=== PATIENT | male | born 1955 | race Two or more races ===

== ENCOUNTER 2019-10-06 10:52 | Emergency (ER) | payer SELFPAY ==
[~2019-10-06] VITALS: Ht 172.7 cm; Wt 75.0 kg
[2019-10-06] MEDS ORDERED: SODIUM CHLORIDE 0.9% 1,000 ML IV ONE (11:31)
[2019-10-06 12:21] LABS: EOSINOPHILS % 4.6 % (0.0-5.0); HEMOGLOBIN. 12.9 g/dL (14.0-18.0); MEAN CORPUSCULAR HEMOGLOBIN 32.3 pg (28.0-32.0); MEAN CORPUSCULAR VOLUME 95.1 fL (80.0-94.0); MEAN PLATELET VOLUME 6.8 fl (7.4-10.4); MONOCYTES % 6.7 % (2.0-8.0); NEUTROPHILS % 54.7 % (40.0-76.0); PLATELET 346 x1000/uL (130-400); RED BLOOD CELL COUNT 3.99 mill/uL (4.7-6.1); RED CELL DISTRIBUTION WIDTH 15.5 % (11.6-14.6)
[2019-10-06 12:22] LABS: CHLORIDE 109 mEq/L (98-107)
[2019-10-06 12:48] LABS: ETHANOL BLOOD 319 mg/dL
[2019-10-06 14:00] VITALS: BP 115/82
== END 2019-10-06 14:30 | disposition home or self-care (01) ==
LOC: ER 10:52
DX: I83.892 Varicose veins of left lower extremity with other complications (principal); E86.0 Dehydration; F10.129 Alcohol abuse with intoxication, unspecified; Y90.8 Blood alcohol level of 240 mg/100 ml or more
CPT/HCPCS: 36415; 80053; 80320; 85025; 99283; J7030; G0480

== ENCOUNTER 2020-12-22 16:20 | Inpatient (IN) | payer MEDICAID ==
[~2020-12-22] VITALS: Ht 172.7 cm; Wt 63.5 kg
[2020-12-22] MEDS ORDERED: FOLIC ACID 1 MG, THIAMINE HCL 100 MG, MVI, ADULT NO.1 10 ML in DEXTROSE 5% WATER 1,000 ML IV ONE (16:45)
[2020-12-22] MEDS ORDERED: SODIUM CHLORIDE 0.9% 1,000 ML IV ONE (16:45)
[2020-12-22] MEDS ORDERED: MULTIVITAMINS,THER W-MINERALS TABLET PO NR (17:15)
[2020-12-22] MEDS ORDERED: FOLIC ACID 1 MG, THIAMINE HCL 100 MG in DEXTROSE 5% WATER 1,000 ML IV ONE (17:15)
[2020-12-22 17:35] LABS: HEMATOCRIT. 22.5 % (42.0-52.0); HEMOGLOBIN. 7.7 g/dL (14.0-18.0); MEAN CORPUSCULAR HEMOGLOBIN 34.2 pg (28.0-32.0); MEAN CORPUSCULAR VOLUME 100.7 fL (80.0-94.0); MEAN PLATELET VOLUME 7.9 fl (7.4-10.4); PLATELET 234 x1000/uL (130-400); RED BLOOD CELL COUNT 2.24 mill/uL (4.7-6.1); RED CELL DISTRIBUTION WIDTH 14.8 % (11.6-14.6)
[2020-12-22 17:41] LABS: INR 1.5; PROTHROMBIN TIME 15.6 sec (9.6-11.0)
[2020-12-22 17:44] LABS: CHLORIDE 99 mEq/L (98-107)
[2020-12-22 17:48] LABS: ETHANOL BLOOD < 10 mg/dL
[2020-12-22 18:06] LABS: PLATELET ESTIMATE NORMAL
[2020-12-22] MEDS ORDERED: KCL 20MEQ/100ML PREMIX 100 ML IV NR (19:00)
[2020-12-22] MEDS ORDERED: ACETAMINOPHEN 650MG/20.3ML UDC GT PRN (21:15)
[2020-12-22] MEDS ORDERED: ONDANSETRON HCL 4MG/2ML INJ IV PRN (21:15)
[2020-12-22] MEDS ORDERED: DIPHENHYDRAMINE 50MG/ML VIAL IV PRN (21:15)
[2020-12-22] MEDS ORDERED: ACETAMINOPHEN 325MG TABLET PO PRN ×2 (21:15)
[2020-12-22] MEDS ORDERED: GUAIFENESIN 200MG/10ML SUGAR FREE UDC PO PRN (21:15)
[2020-12-22] MEDS ORDERED: DOCUSATE SODIUM 100MG CAPSULE PO PRN (21:15)
[2020-12-22] MEDS ORDERED: DEXT 5%/0.45% NACL 1000ML 1,000 ML IV SCH (21:30)
[2020-12-23] VITALS (7 sets, daily range): BP systolic 86–108; BP diastolic 49–78
[2020-12-23] MEDS: ENOXAPARIN 40MG/0.4ML SYR SUBCUT SCH ×2 (02:18→21:29)
[2020-12-23 04:30] LABS: BASOPHILS % 0.6 % (0.0-2.0); EOSINOPHILS % 3.1 % (0.0-5.0); HEMATOCRIT. 22.4 % (42.0-52.0); HEMOGLOBIN. 7.1 g/dL (14.0-18.0); LYMPHOCYTES % 12.8 % (20.0-50.0); MEAN CORPUSCULAR VOLUME 103.3 fL (80.0-94.0); MEAN PLATELET VOLUME 7.2 fl (7.4-10.4); MONOCYTES % 10.2 % (2.0-8.0); NEUTROPHILS % 73.3 % (40.0-76.0); PLATELET 208 x1000/uL (130-400); RED BLOOD CELL COUNT 2.17 mill/uL (4.7-6.1); RED CELL DISTRIBUTION WIDTH 14.8 % (11.6-14.6)
[2020-12-23 04:35] LABS: CHLORIDE 98 mEq/L (98-107)
[2020-12-23 04:42] LABS: LDL CHOLESTEROL 26 mg/dL (5-100)
[2020-12-23 04:43] LABS: HDL CHOLESTEROL 9 mg/dL (40-59)
[2020-12-23] MEDS: FOLIC ACID 1MG TABLET PO SCH (09:19)
[2020-12-23] MEDS: THIAMINE HCL 100MG TABLET PO SCH (09:19)
[2020-12-23] MEDS ORDERED: POTASSIUM CHLORIDE 20MEQ TABLET SR PO NR (10:30)
[2020-12-23] MEDS: CHLORDIAZEPOXIDE 25MG CAPSULE PO SCH ×2 (13:39→21:28)
[2020-12-24 04:00] VITALS: BP 126/78
[2020-12-24] MEDS: CHLORDIAZEPOXIDE 25MG CAPSULE PO SCH ×3 (06:57→22:01)
[2020-12-24 08:00] VITALS: BP 90/55
[2020-12-24] MEDS: FOLIC ACID 1MG TABLET PO SCH (08:29)
[2020-12-24] MEDS: THIAMINE HCL 100MG TABLET PO SCH (08:33)
[2020-12-24 08:50] LABS: BASOPHILS % 0.1 % (0.0-2.0); EOSINOPHILS % 3.4 % (0.0-5.0); HEMATOCRIT. 21.7 % (42.0-52.0); HEMOGLOBIN. 7.4 g/dL (14.0-18.0); LYMPHOCYTES % 10.3 % (20.0-50.0); MEAN CORPUSCULAR HEMOGLOBIN 34.4 pg (28.0-32.0); MEAN CORPUSCULAR VOLUME 101.2 fL (80.0-94.0); MEAN PLATELET VOLUME 7.6 fl (7.4-10.4); MONOCYTES % 10.2 % (2.0-8.0); PLATELET 213 x1000/uL (130-400); RED BLOOD CELL COUNT 2.15 mill/uL (4.7-6.1); RED CELL DISTRIBUTION WIDTH 14.5 % (11.6-14.6)
[2020-12-24 08:59] LABS: CHLORIDE 94 mEq/L (98-107)
[2020-12-24 09:06] LABS: TOTAL IRON BINDING CAPACITY 63 ug/dL (250-450)
[2020-12-24 09:20] LABS: FOLIC ACID (FOLATE) SERUM 10.8 ng/mL (>5.38)
[2020-12-24 12:00] VITALS: BP 90/55
[2020-12-24] MEDS: SODIUM CHLORIDE 1000MG TABLET PO SCH ×2 (12:33→16:18)
[2020-12-24 16:00] VITALS: BP 100/61
[2020-12-24 20:00] VITALS: BP 98/65
[2020-12-24] MEDS: FAMOTIDINE 20MG TABLET PO SCH (22:01)
[2020-12-25] VITALS: BP 90/62
[2020-12-25 04:00] VITALS: BP 94/58
[2020-12-25] MEDS: CHLORDIAZEPOXIDE 25MG CAPSULE PO SCH ×3 (05:34→21:03)
[2020-12-25 08:00] VITALS: BP 90/55
[2020-12-25] MEDS: FOLIC ACID 1MG TABLET PO SCH (08:56)
[2020-12-25] MEDS: THIAMINE HCL 100MG TABLET PO SCH (09:01)
[2020-12-25 12:00] VITALS: BP 90/55
[2020-12-25] MEDS ORDERED: DIATR MEGLU/DIATRIZOATE SOLN 30ML PO SCH (12:45)
[2020-12-25] MEDS: NICOTINE 7MG PATCH TD SCH (14:50)
[2020-12-25 16:00] VITALS: BP 90/51
[2020-12-25 16:07] LABS: BASOPHILS % 0.5 % (0.0-2.0); EOSINOPHILS % 2.4 % (0.0-5.0); HEMATOCRIT. 24.6 % (42.0-52.0); HEMOGLOBIN. 8.2 g/dL (14.0-18.0); LYMPHOCYTES % 8.6 % (20.0-50.0); MEAN CORPUSCULAR HEMOGLOBIN 34.6 pg (28.0-32.0); MEAN CORPUSCULAR VOLUME 103.6 fL (80.0-94.0); MEAN PLATELET VOLUME 8.4 fl (7.4-10.4); MONOCYTES % 8.4 % (2.0-8.0); NEUTROPHILS % 80.1 % (40.0-76.0); PLATELET 248 x1000/uL (130-400); RED BLOOD CELL COUNT 2.37 mill/uL (4.7-6.1)
[2020-12-25 16:26] LABS: CHLORIDE 97 mEq/L (98-107)
[2020-12-25 20:00] VITALS: BP 93/59
[2020-12-25] MEDS: FAMOTIDINE 20MG TABLET PO SCH (20:41)
[2020-12-25] MEDS: MIRTAZAPINE 15MG TABLET PO SCH (20:41)
[2020-12-25] MEDS ORDERED: IOHEXOL-300 100 ML BOTTLE ONE (23:18)
[2020-12-26] VITALS: BP 95/63
[2020-12-26] MEDS: CEFTRIAXONE 1,000 MG in DEXTROSE 5% WATER 50 ML IV SCH ×2 (00:50→19:43)
[2020-12-26 04:00] VITALS: BP 95/64
[2020-12-26 07:08] LABS: BASOPHILS % 0.5 % (0.0-2.0); EOSINOPHILS % 2.3 % (0.0-5.0); HEMATOCRIT. 23.9 % (42.0-52.0); HEMOGLOBIN. 7.8 g/dL (14.0-18.0); LYMPHOCYTES % 12.3 % (20.0-50.0); MEAN CORPUSCULAR HEMOGLOBIN 33.9 pg (28.0-32.0); MEAN CORPUSCULAR VOLUME 103.5 fL (80.0-94.0); MEAN PLATELET VOLUME 8.8 fl (7.4-10.4); MONOCYTES % 6.9 % (2.0-8.0); PLATELET 221 x1000/uL (130-400); RED BLOOD CELL COUNT 2.31 mill/uL (4.7-6.1)
[2020-12-26 07:27] LABS: CHLORIDE 97 mEq/L (98-107)
[2020-12-26 08:00] VITALS: BP 90/61
[2020-12-26] MEDS: NICOTINE 7MG PATCH TD SCH (08:58)
[2020-12-26] MEDS: THIAMINE HCL 100MG TABLET PO SCH (08:58)
[2020-12-26] MEDS: FOLIC ACID 1MG TABLET PO SCH (08:58)
[2020-12-26] MEDS ORDERED: FAMO20TA8 PO (09:27)
[2020-12-26] MEDS ORDERED: THIA100T72 PO (09:27)
[2020-12-26] MEDS ORDERED: NICO-786 TD (09:27)
[2020-12-26] MEDS ORDERED: FOLI-43 PO (09:27)
[2020-12-26] MEDS ORDERED: MIRT15TA6 PO (09:27)
[2020-12-26] MEDS ORDERED: [UNRECOGNIZED DRUG - CODE] MC (09:28)
[2020-12-26 12:00] VITALS: BP 93/58
[2020-12-26] MEDS ORDERED: MAGNESIUM 2 G PREMIX 50 ML IV SCH (12:00)
[2020-12-26 16:00] VITALS: BP 90/56
[2020-12-26] MEDS: FAMOTIDINE 20MG TABLET PO SCH (19:43)
[2020-12-26] MEDS: MIRTAZAPINE 15MG TABLET PO SCH (19:44)
[2020-12-26 20:00] VITALS: BP 103/70
[2020-12-27] VITALS: BP 91/58
[2020-12-27 04:00] VITALS: BP 90/56
[2020-12-27 06:34] LABS: BASOPHILS % 0.7 % (0.0-2.0); EOSINOPHILS % 2.4 % (0.0-5.0); HEMATOCRIT. 21.2 % (42.0-52.0); HEMOGLOBIN. 7.2 g/dL (14.0-18.0); LYMPHOCYTES % 9.8 % (20.0-50.0); MEAN CORPUSCULAR HEMOGLOBIN 34.3 pg (28.0-32.0); MEAN CORPUSCULAR VOLUME 101.6 fL (80.0-94.0); MEAN PLATELET VOLUME 7.9 fl (7.4-10.4); MONOCYTES % 9.1 % (2.0-8.0); PLATELET 249 x1000/uL (130-400); RED BLOOD CELL COUNT 2.09 mill/uL (4.7-6.1); RED CELL DISTRIBUTION WIDTH 15.6 % (11.6-14.6)
[2020-12-27 08:00] VITALS: BP 91/56
[2020-12-27 08:07] LABS: CHLORIDE 100 mEq/L (98-107)
[2020-12-27] MEDS ORDERED: POTASSIUM CHLORIDE 20MEQ TABLET SR PO NR (09:15)
[2020-12-27] MEDS: NICOTINE 7MG PATCH TD SCH (09:52)
[2020-12-27] MEDS: FOLIC ACID 1MG TABLET PO SCH (09:53)
[2020-12-27] MEDS: THIAMINE HCL 100MG TABLET PO SCH (09:53)
[2020-12-27 12:00] VITALS: BP 77/49
[2020-12-27 16:00] VITALS: BP 80/49
[2020-12-27 20:00] VITALS: BP 99/56
[2020-12-27] MEDS: CEFTRIAXONE 1,000 MG in DEXTROSE 5% WATER 50 ML IV SCH (20:40)
[2020-12-27] MEDS: FAMOTIDINE 20MG TABLET PO SCH (20:40)
[2020-12-27] MEDS: MIRTAZAPINE 15MG TABLET PO SCH (20:40)
[2020-12-27 21:07] LABS: CLARITY URINE CLEAR (CLEAR); COLOR URINE DARK YELLOW (YELLOW); KETONES URINE TRACE (NEGATIVE); LEUKOCYTE ESTERASE URINE 1+ (NEGATIVE); NITRITE URINE POSITIVE (NEGATIVE); OCCULT BLOOD URINE NEGATIVE (NEGATIVE); PH URINE 6.5 (4.5-8.0); PROTEIN URINE TRACE (NEGATIVE); SPECIFIC GRAVITY URINE 1.024 (1.005-1.030)
[2020-12-27 21:20] LABS: *AMPHETAMINES SCREEN URINE NEGATIVE (NEGATIVE); *BARBITURATES SCREEN URINE NEGATIVE (NEGATIVE)
[2020-12-27 21:22] LABS: *BENZODIAZEPINES SCREEN URINE PRESUMTIVE POSITIVE (NEGATIVE); *COCAINE SCREEN URINE NEGATIVE (NEGATIVE)
[2020-12-27 21:28] LABS: CANNABINOID URINE SCREEN NEGATIVE (NEGATIVE)
[2020-12-27 21:35] LABS: METHADONE URINE SCREEN NEGATIVE (NEGATIVE)
[2020-12-27 21:38] LABS: OPIATES URINE SCREEN NEGATIVE (NEGATIVE); PHENCYCLIDINE URINE SCREEN NEGATIVE (NEGATIVE)
[2020-12-28] VITALS: BP 100/59
[2020-12-28 04:00] VITALS: BP 118/66
[2020-12-28 08:00] VITALS: BP_SYST 115; BP_SYST 128; BP_DIAS 68; BP_DIAS 86
[2020-12-28 12:00] VITALS: BP 124/67
[2020-12-28 16:00] VITALS: BP 119/72
[2020-12-28] MEDS: THIAMINE HCL 100MG TABLET PO SCH (17:38)
[2020-12-28] MEDS: NICOTINE 7MG PATCH TD SCH (17:38)
[2020-12-28] MEDS: FOLIC ACID 1MG TABLET PO SCH (17:39)
[2020-12-28 20:00] VITALS: BP 99/51
[2020-12-28] MEDS: MIRTAZAPINE 15MG TABLET PO SCH (20:26)
[2020-12-28] MEDS: FAMOTIDINE 20MG TABLET PO SCH (20:26)
[2020-12-28] MEDS: CEFTRIAXONE 1,000 MG in DEXTROSE 5% WATER 50 ML IV SCH (21:00)
[2020-12-29] VITALS (7 sets, daily range): BP systolic 96–115; BP diastolic 58–70
[2020-12-29] MEDS: NICOTINE 7MG PATCH TD SCH (09:00)
[2020-12-29] MEDS: FOLIC ACID 1MG TABLET PO SCH (09:00)
[2020-12-29] MEDS: THIAMINE HCL 100MG TABLET PO SCH (09:01)
[2020-12-29] MEDS: FAMOTIDINE 20MG TABLET PO SCH (20:16)
[2020-12-29] MEDS: MIRTAZAPINE 15MG TABLET PO SCH (20:16)
[2020-12-29] MEDS: CEFTRIAXONE 1,000 MG in DEXTROSE 5% WATER 50 ML IV SCH (21:25)
[2020-12-30] VITALS: BP 108/66
[2020-12-30 04:00] VITALS: BP 115/66
[2020-12-30] MEDS: NICOTINE 7MG PATCH TD SCH (08:45)
[2020-12-30] MEDS: THIAMINE HCL 100MG TABLET PO SCH (08:46)
[2020-12-30] MEDS: FOLIC ACID 1MG TABLET PO SCH (08:46)
[2020-12-30 12:00] VITALS: BP 136/116
[2020-12-30 12:01] LABS: BASOPHILS % 0.6 % (0.0-2.0); EOSINOPHILS % 3.5 % (0.0-5.0); HEMATOCRIT. 24.4 % (42.0-52.0); HEMOGLOBIN. 8.1 g/dL (14.0-18.0); LYMPHOCYTES % 12.2 % (20.0-50.0); MEAN CORPUSCULAR HEMOGLOBIN 33.8 pg (28.0-32.0); MEAN CORPUSCULAR VOLUME 101.7 fL (80.0-94.0); MEAN PLATELET VOLUME 7.9 fl (7.4-10.4); MONOCYTES % 8.8 % (2.0-8.0); NEUTROPHILS % 74.9 % (40.0-76.0); PLATELET 283 x1000/uL (130-400); RED CELL DISTRIBUTION WIDTH 15.6 % (11.6-14.6)
[2020-12-30 12:05] LABS: CHLORIDE 105 mEq/L (98-107)
[2020-12-30 16:00] VITALS: BP 91/65
[2020-12-30] MEDS ORDERED: LACTULOSE 20G/30ML UDC PO PRN (17:45)
[2020-12-30 20:00] VITALS: BP 98/69
[2020-12-30] MEDS: FAMOTIDINE 20MG TABLET PO SCH (20:30)
[2020-12-30] MEDS: CEFTRIAXONE 1,000 MG in DEXTROSE 5% WATER 50 ML IV SCH (21:19)
[2020-12-31] VITALS: BP 95/64
[2020-12-31 04:00] VITALS: BP 92/60
[2020-12-31 08:00] VITALS: BP 94/57
[2020-12-31] MEDS: NICOTINE 7MG PATCH TD SCH (08:22)
[2020-12-31] MEDS: FOLIC ACID 1MG TABLET PO SCH (08:22)
[2020-12-31] MEDS: THIAMINE HCL 100MG TABLET PO SCH (08:23)
[2020-12-31 12:00] VITALS: BP 91/61
[2020-12-31 16:00] VITALS: BP 92/59
[2020-12-31 20:00] VITALS: BP 110/75
[2020-12-31] MEDS: FAMOTIDINE 20MG TABLET PO SCH (21:32)
[2021-01-01] VITALS: BP 88/60
[2021-01-01] MEDS ORDERED: SODIUM CHLORIDE 0.9% 500 ML IV ONE ×2 (03:30→09:30)
[2021-01-01 04:00] VITALS: BP 95/59
[2021-01-01 05:07] LABS: CLARITY URINE CLEAR (CLEAR); COLOR URINE YELLOW (YELLOW); KETONES URINE NEGATIVE (NEGATIVE); LEUKOCYTE ESTERASE URINE TRACE (NEGATIVE); NITRITE URINE NEGATIVE (NEGATIVE); OCCULT BLOOD URINE NEGATIVE (NEGATIVE); PROTEIN URINE NEGATIVE (NEGATIVE); SPECIFIC GRAVITY URINE 1.009 (1.005-1.030); UROBILINOGEN URINE 0.2 E.U./dL (0.2-1.0)
[2021-01-01 08:00] VITALS: BP 99/51
[2021-01-01] MEDS ORDERED: SODIUM CHLORIDE 0.9% 1000ML BAG (SEPSIS BOLUS) IV ONE (09:30)
[2021-01-01] MEDS: FOLIC ACID 1MG TABLET PO SCH (09:35)
[2021-01-01] MEDS: THIAMINE HCL 100MG TABLET PO SCH (09:36)
[2021-01-01] MEDS: NICOTINE 7MG PATCH TD SCH (09:36)
[2021-01-01 12:00] VITALS: BP 98/55
[2021-01-01 13:04] LABS: BASOPHILS % 0.6 % (0.0-2.0); EOSINOPHILS % 3.4 % (0.0-5.0); HEMATOCRIT. 25.2 % (42.0-52.0); LYMPHOCYTES % 16.2 % (20.0-50.0); MEAN CORPUSCULAR HEMOGLOBIN 33.1 pg (28.0-32.0); MEAN CORPUSCULAR VOLUME 103.9 fL (80.0-94.0); MEAN PLATELET VOLUME 7.9 fl (7.4-10.4); MONOCYTES % 8.1 % (2.0-8.0); NEUTROPHILS % 71.7 % (40.0-76.0); PLATELET 234 x1000/uL (130-400); RED BLOOD CELL COUNT 2.42 mill/uL (4.7-6.1); RED CELL DISTRIBUTION WIDTH 16.3 % (11.6-14.6)
[2021-01-01 13:58] LABS: CHLORIDE 112 mEq/L (98-107)
[2021-01-01 16:00] VITALS: BP 99/64
[2021-01-01] MEDS ORDERED: LACTULOSE 20G/30ML UDC PO SCH (21:00)
[2021-01-01 21:37] VITALS: BP 95/65
[2021-01-01] MEDS: FAMOTIDINE 20MG TABLET PO SCH (21:43)
[2021-01-02 01:16] VITALS: BP 104/68
[2021-01-02 04:42] VITALS: BP 99/66
[2021-01-02 08:00] VITALS: BP 103/68
[2021-01-02] MEDS: NICOTINE 7MG PATCH TD SCH (09:36)
[2021-01-02] MEDS: FOLIC ACID 1MG TABLET PO SCH (09:37)
[2021-01-02] MEDS: THIAMINE HCL 100MG TABLET PO SCH (09:37)
[2021-01-02 12:00] VITALS: BP 113/79
[2021-01-02 16:00] VITALS: BP 99/66
[2021-01-02 17:03] VITALS: BP 99/66
== END 2021-01-02 21:02 | DRG 52 ==
LOC: ER 16:20 → 8WST 19:16 → ENRESERV 12-23 03:09 → 8WST 12-23 04:24
PROVIDERS: ADMIT Family Medicine; ATTEND Family Medicine
DX: G93.41 Metabolic encephalopathy (principal); D68.9 Coagulation defect, unspecified; E44.0 Moderate protein-calorie malnutrition; R65.10 Systemic inflammatory response syndrome (SIRS) of non-infectious origin without acute organ dysfunction; E87.1 Hypo-osmolality and hyponatremia; K76.0 Fatty (change of) liver, not elsewhere classified; E87.6 Hypokalemia; D72.825 Bandemia; K52.9 Noninfective gastroenteritis and colitis, unspecified; K80.20 Calculus of gallbladder without cholecystitis without obstruction; Y90.9 Presence of alcohol in blood, level not specified; R26.89 Other abnormalities of gait and mobility; Z59.0 Homelessness; Z68.21 Body mass index [BMI] 21.0-21.9, adult; F10.20 Alcohol dependence, uncomplicated; Z74.01 Bed confinement status; R62.7 Adult failure to thrive
CPT/HCPCS: 36415; 70551; 71045; 74177; 76705; 80048; 80053; 80061; 80305; 80320; 81003; 82140; 82607; 82746; 83540; 83550; 83735; 83930; 84443; 84484; 85025; 93005; 97110; 97162; 97166; 97530; 99285; C1893; J0696; J1650; J3411; J3475; J3480; J3490; J7030; J7040; J7060; J7070; Q9963; Q9967; G0480

== ENCOUNTER 2021-01-25 07:52 | Inpatient (IN) | payer MEDICAID ==
[2021-01-25] VITALS (10 sets, daily range): BP systolic 78–124; BP diastolic 37–77
[~2021-01-25] VITALS: Ht 170.2 cm; Wt 27.7 kg
[~2021-01-25 07:52] MED LIST: FAMO20TA8 PO; FOLI-43 PO; MIRT15TA6 PO; NICO-786 TD; THIA100T72 PO; [UNRECOGNIZED DRUG - CODE] MC
[2021-01-25] MEDS ORDERED: SODIUM CHLORIDE 0.9% 1,000 ML IV ONE ×2 (08:30→10:45)
[2021-01-25 08:49] LABS: BASOPHILS % 0.4 % (0.0-2.0); HEMATOCRIT. 36.3 % (42.0-52.0); HEMOGLOBIN. 11.7 g/dL (14.0-18.0); LYMPHOCYTES % 10.4 % (20.0-50.0); MEAN CORPUSCULAR VOLUME 98.8 fL (80.0-94.0); MEAN PLATELET VOLUME 9.8 fl (7.4-10.4); MONOCYTES % 4.6 % (2.0-8.0); NEUTROPHILS % 82.6 % (40.0-76.0); PLATELET 82 x1000/uL (130-400); RED BLOOD CELL COUNT 3.67 mill/uL (4.7-6.1)
[2021-01-25 08:51] LABS: CHLORIDE 117 mEq/L (98-107)
[2021-01-25 09:15] LABS: INR 1.3
[2021-01-25 10:07] LABS: CLARITY URINE CLEAR (CLEAR); COLOR URINE DARK YELLOW (YELLOW); KETONES URINE TRACE (NEGATIVE); LEUKOCYTE ESTERASE URINE 1+ (NEGATIVE); NITRITE URINE POSITIVE (NEGATIVE); OCCULT BLOOD URINE TRACE (NEGATIVE); PH URINE 5.5 (4.5-8.0); PROTEIN URINE NEGATIVE (NEGATIVE); SPECIFIC GRAVITY URINE 1.025 (1.005-1.030); UROBILINOGEN URINE 0.2 E.U./dL (0.2-1.0)
[2021-01-25] MEDS ORDERED: VANCOMYCIN 1 G PREMIX 200 ML IV NR (10:45)
[2021-01-25] MEDS ORDERED: PIPERACILLIN/TAZOBACTAM 3.375GM/50ML PREMIX IV ONE (10:45)
[2021-01-25] MEDS ORDERED: PIPERACILLIN/TAZ 3.375G PREMIX 50 ML IV NR (11:00)
[2021-01-25] MEDS ORDERED: NOREPINEPHRINE 8MG/250ML PMX 250 ML IV ONE (12:15)
[2021-01-25] MEDS ORDERED: NOREPINEPHRINE 8 MG in DEXTROSE 5% WATER 250 ML IV NR (13:00)
[2021-01-25] MEDS ORDERED: LIDOCAINE HCL 1% 20ML VIAL (Pyxis) INJ ONE (13:36)
[2021-01-25] MEDS ORDERED: MAGNESIUM/ALUMINUM HYDROXIDE/SIMETHICONE 30ML UDC PO PRN (18:15)
[2021-01-25] MEDS ORDERED: DOCUSATE SODIUM 100MG CAPSULE PO PRN (18:15)
[2021-01-25] MEDS ORDERED: ACETAMINOPHEN 325MG TABLET PO PRN ×2 (18:15)
[2021-01-25] MEDS ORDERED: GUAIFENESIN 200MG/10ML SUGAR FREE UDC PO PRN (18:15)
[2021-01-25] MEDS ORDERED: ONDANSETRON HCL 4MG/2ML INJ IV PRN (18:15)
[2021-01-25] MEDS ORDERED: CLONIDINE 0.1MG TABLET PO PRN (18:15)
[2021-01-25] MEDS ORDERED: NITROGLYCERIN 0.4MG TABLET SL SL PRN (18:15)
[2021-01-25] MEDS ORDERED: IPRATROPIUM/ALBUTEROL 0.5-3(2.5)MG/3ML NEB NEB PRN (18:15)
[2021-01-25] MEDS ORDERED: KETOROLAC 15MG/ML VIAL IV PRN (19:00)
[2021-01-25] MEDS ORDERED: NOREPINEPHRINE 8 MG in DEXT 5% WATER 242 ML IV PRN (19:00)
[2021-01-25 19:09] LABS: T4 FREE 1.26 ng/dL (0.76-1.46)
[2021-01-25 19:37] LABS: VITAMIN B12 SERUM > 2000.0 pg/mL (211-911)
[2021-01-25] MEDS ORDERED: PHENYLEPHRINE 50 MG in DEXT 5% WATER 245 ML IV PRN (19:45)
[2021-01-25] MEDS: ASCORBIC ACID 500 MG TABLET PO SCH (19:50)
[2021-01-25] MEDS: FAMOTIDINE 20MG TABLET PO SCH (19:51)
[2021-01-25] MEDS ORDERED: ZOLPIDEM TARTRATE 5MG TABLET PO PRN (20:00)
[2021-01-25] MEDS: ENOXAPARIN 40MG/0.4ML SYR SUBCUT SCH (20:00)
[2021-01-25] MEDS ORDERED: PIPERACILLIN/TAZ 3.375G PREMIX 50 ML IV SCH (20:00)
[2021-01-25] MEDS: PHENYLEPHRINE 50 MG in DEXT 5% WATER 245 ML IV PRN (20:24)
[2021-01-25] MEDS ORDERED: VANCOMYCIN 1 G PREMIX 200 ML IV SCH (21:00)
[2021-01-25] MEDS: NOREPINEPHRINE 8 MG in DEXT 5% WATER 242 ML IV PRN (23:32)
[2021-01-26] VITALS (103 sets, daily range): BP systolic 54–154; BP diastolic 33–105
[2021-01-26 00:15] LABS: CREATINE KINASE MB FRACTION 38.3 ng/mL (0.5-3.6)
[2021-01-26] MEDS: PIPERACILLIN/TAZOBACTAM 3.375 G in DEXT 5% WATER 100 ML IV SCH ×4 (05:08→23:09)
[2021-01-26] MEDS: PHENYLEPHRINE 50 MG in DEXT 5% WATER 245 ML IV PRN ×5 (05:24→23:21)
[2021-01-26] MEDS: NOREPINEPHRINE 8 MG in DEXT 5% WATER 242 ML IV PRN ×2 (05:25→12:26)
[2021-01-26 05:26] LABS: CHLORIDE 117 mEq/L (98-107)
[2021-01-26 05:33] LABS: PHOSPHORUS 3.6 mg/dL (2.5-4.9)
[2021-01-26 05:34] LABS: HEMATOCRIT. 33.6 % (42.0-52.0); HEMOGLOBIN. 10.6 g/dL (14.0-18.0); MEAN CORPUSCULAR HEMOGLOBIN 30.9 pg (28.0-32.0); MEAN CORPUSCULAR VOLUME 97.8 fL (80.0-94.0); MEAN PLATELET VOLUME 9.1 fl (7.4-10.4); PLATELET 63 x1000/uL (130-400); RED BLOOD CELL COUNT 3.43 mill/uL (4.7-6.1); RED CELL DISTRIBUTION WIDTH 15.3 % (11.6-14.6)
[2021-01-26 05:35] LABS: CREATINE KINASE 415 IU/L (39-308)
[2021-01-26 05:40] LABS: CREATINE KINASE MB FRACTION 31.9 ng/mL (0.5-3.6)
[2021-01-26] MEDS: ZINC SULFATE 220 MG ( 50 ) CAPSULE PO SCH (09:00)
[2021-01-26] MEDS: ASCORBIC ACID 500 MG TABLET PO SCH ×2 (09:00→20:44)
[2021-01-26] MEDS: FAMOTIDINE 20MG TABLET PO SCH ×2 (09:00→20:44)
[2021-01-26] MEDS: CHOLECALCIFEROL (D3) 1000 UNIT TABLET PO SCH (09:00)
[2021-01-26 09:33] LABS: BG CARBOXYHEMOGLOBIN 0.3 % (0.5-1.5); BG DEOXYHEMOGLOBIN 1.4 % (0.0-5.0); BG FRACTION INSPIRED OXYGEN 99.8; BG HCO3 ACT 18.5 mmol/L (22.0-26.0); BG METHEMOGLOBIN 0.2 % (0.0-1.5); BG OXYGEN SATURATION 98.6 % (92.0-98.5); BG OXYHEMOGLOBIN 98.1 % (94.0-97.0); BG PCO2 29.2 mmHg (35.0-45.0); BG PH 7.419 (7.350-7.450); BG PO2 158.7 mmHg (75.0-100.0); BG SAMPLE SITE LEFT RADIAL; BG TOTAL HEMOGLOBIN 11.1 g/dL (12.0-18.0); BG VENT MODE MASK - NRB
[2021-01-26] MEDS: VANCOMYCIN 750 MG PREMIX 150 ML IV SCH ×2 (09:35→18:15)
[2021-01-26 11:16] LABS: PLATELET ESTIMATE DECREASED
[2021-01-26] MEDS: ENOXAPARIN 40MG/0.4ML SYR SUBCUT SCH (20:00)
[2021-01-26] MEDS: NICOTINE 7MG PATCH TD SCH (23:15)
[2021-01-27] VITALS (87 sets, daily range): BP systolic 31–134; BP diastolic 21–85
[2021-01-27] MEDS: VANCOMYCIN 750 MG PREMIX 150 ML IV SCH (01:16)
[2021-01-27] MEDS: PHENYLEPHRINE 50 MG in DEXT 5% WATER 245 ML IV PRN ×2 (04:03→12:45)
[2021-01-27] MEDS: PIPERACILLIN/TAZOBACTAM 3.375 G in DEXT 5% WATER 100 ML IV SCH ×4 (05:00→23:18)
[2021-01-27] MEDS: ASCORBIC ACID 500 MG TABLET PO SCH ×2 (08:22→21:20)
[2021-01-27] MEDS: FAMOTIDINE 20MG TABLET PO SCH ×2 (08:22→21:20)
[2021-01-27] MEDS: CHOLECALCIFEROL (D3) 1000 UNIT TABLET PO SCH (08:22)
[2021-01-27] MEDS: ZINC SULFATE 220 MG ( 50 ) CAPSULE PO SCH (08:22)
[2021-01-27] MEDS: NICOTINE 7MG PATCH TD SCH (08:23)
[2021-01-27 08:48] LABS: VANCOMYCIN TROUGH 23.1 ug/mL (5.0-10.0)
[2021-01-27] MEDS: MIDODRINE HCL 5MG TABLET NG SCH ×2 (14:03→21:20)
[2021-01-27] MEDS: VANCOMYCIN 1 G PREMIX 200 ML IV SCH (14:03)
[2021-01-27] MEDS: DOPAMINE 400MG/250ML PREMIX 250 ML IV PRN ×2 (19:41→22:09)
[2021-01-27] MEDS: ENOXAPARIN 40MG/0.4ML SYR SUBCUT SCH (19:54)
[2021-01-28] VITALS (92 sets, daily range): BP systolic 72–167; BP diastolic 28–113
[2021-01-28] MEDS: VANCOMYCIN 1 G PREMIX 200 ML IV SCH ×2 (01:13→18:35)
[2021-01-28 04:48] LABS: CHLORIDE 109 mEq/L (98-107)
[2021-01-28] MEDS: PIPERACILLIN/TAZOBACTAM 3.375 G in DEXT 5% WATER 100 ML IV SCH ×4 (05:27→23:01)
[2021-01-28] MEDS: MIDODRINE HCL 5MG TABLET NG SCH (05:27)
[2021-01-28] MEDS: ZINC SULFATE 220 MG ( 50 ) CAPSULE PO SCH (09:47)
[2021-01-28] MEDS: CHOLECALCIFEROL (D3) 1000 UNIT TABLET PO SCH (09:49)
[2021-01-28] MEDS: ASCORBIC ACID 500 MG TABLET PO SCH ×2 (09:49→20:20)
[2021-01-28] MEDS: FAMOTIDINE 20MG TABLET PO SCH ×2 (09:49→20:21)
[2021-01-28] MEDS: NICOTINE 7MG PATCH TD SCH (10:54)
[2021-01-28] MEDS: MIDODRINE HCL 5MG TABLET PO SCH (17:51)
[2021-01-28] MEDS: ENOXAPARIN 40MG/0.4ML SYR SUBCUT SCH (20:00)
[2021-01-28] MEDS ORDERED: CHLO25CA10 PO (21:47)
[2021-01-28] MEDS: DOCUSATE SODIUM SUGAR FREE 100MG/10ML UDC NG PRN (22:47)
[2021-01-28] MEDS: PHENYLEPHRINE 50 MG in DEXT 5% WATER 245 ML IV PRN (22:47)
[2021-01-29] VITALS (103 sets, daily range): BP systolic 60–183; BP diastolic 40–116
[2021-01-29] MEDS: NOREPINEPHRINE 8 MG in DEXT 5% WATER 242 ML IV PRN ×2 (01:09→20:23)
[2021-01-29] MEDS: PIPERACILLIN/TAZOBACTAM 3.375 G in DEXT 5% WATER 100 ML IV SCH ×3 (05:10→18:21)
[2021-01-29] MEDS: VANCOMYCIN 1 G PREMIX 200 ML IV SCH (05:10)
[2021-01-29 05:41] LABS: BASOPHILS % 0.4 % (0.0-2.0); EOSINOPHILS % 5.9 % (0.0-5.0); HEMATOCRIT. 31.4 % (42.0-52.0); HEMOGLOBIN. 10.3 g/dL (14.0-18.0); MEAN CORPUSCULAR HEMOGLOBIN 31.3 pg (28.0-32.0); MEAN CORPUSCULAR VOLUME 95.2 fL (80.0-94.0); MEAN PLATELET VOLUME 9.7 fl (7.4-10.4); MONOCYTES % 12.1 % (2.0-8.0); NEUTROPHILS % 72.6 % (40.0-76.0); RED BLOOD CELL COUNT 3.29 mill/uL (4.7-6.1); RED CELL DISTRIBUTION WIDTH 14.9 % (11.6-14.6)
[2021-01-29 05:45] LABS: CHLORIDE 108 mEq/L (98-107)
[2021-01-29 05:52] LABS: PHOSPHORUS 3.4 mg/dL (2.5-4.9)
[2021-01-29 06:03] LABS: VANCOMYCIN TROUGH 22.7 ug/mL (5.0-10.0)
[2021-01-29] MEDS: ZINC SULFATE 220 MG ( 50 ) CAPSULE PO SCH (08:59)
[2021-01-29] MEDS: NICOTINE 7MG PATCH TD SCH (08:59)
[2021-01-29] MEDS: CHOLECALCIFEROL (D3) 1000 UNIT TABLET PO SCH (08:59)
[2021-01-29] MEDS: MIDODRINE HCL 5MG TABLET PO SCH ×3 (09:00→17:32)
[2021-01-29] MEDS: ASCORBIC ACID 500 MG TABLET PO SCH ×2 (09:00→20:20)
[2021-01-29] MEDS: FAMOTIDINE 20MG TABLET PO SCH ×2 (09:01→20:21)
[2021-01-29] MEDS ORDERED: ALBUMIN HUMAN 12.5G/250ML (5%) IV ONE (10:15)
[2021-01-29] MEDS ORDERED: ALBUMIN HUMAN 12.5G/250ML (5%) IV NR (10:30)
[2021-01-29] MEDS ORDERED: DOCUSATE SODIUM SUGAR FREE 100MG/10ML UDC NG PRN (11:28)
[2021-01-29 12:07] LABS: PLATELET 29 x1000/uL (130-400)
[2021-01-29] MEDS: VANCOMYCIN 750 MG PREMIX 150 ML IV SCH (20:20)
[2021-01-30] VITALS (62 sets, daily range): BP systolic 68–130; BP diastolic 45–98
[2021-01-30] MEDS: PIPERACILLIN/TAZOBACTAM 3.375 G in DEXT 5% WATER 100 ML IV SCH ×4 (00:38→17:55)
[2021-01-30] MEDS: DOCUSATE SODIUM SUGAR FREE 100MG/10ML UDC NG PRN (05:22)
[2021-01-30 05:28] LABS: CHLORIDE 107 mEq/L (98-107)
[2021-01-30 05:30] LABS: HEMATOCRIT. 27.3 % (42.0-52.0); HEMOGLOBIN. 9.1 g/dL (14.0-18.0); MEAN CORPUSCULAR HEMOGLOBIN 31.1 pg (28.0-32.0); MEAN CORPUSCULAR VOLUME 93.6 fL (80.0-94.0); MEAN PLATELET VOLUME 9.5 fl (7.4-10.4); RED BLOOD CELL COUNT 2.92 mill/uL (4.7-6.1); RED CELL DISTRIBUTION WIDTH 14.6 % (11.6-14.6)
[2021-01-30 07:40] LABS: PLATELET ESTIMATE MARKEDLY DECREASED
[2021-01-30 07:41] LABS: PLATELET 19 x1000/uL (130-400)
[2021-01-30] MEDS: NICOTINE 7MG PATCH TD SCH (08:11)
[2021-01-30] MEDS: ASCORBIC ACID 500 MG TABLET PO SCH ×2 (08:11→20:31)
[2021-01-30] MEDS: MIDODRINE HCL 5MG TABLET PO SCH ×3 (08:11→17:55)
[2021-01-30] MEDS: VANCOMYCIN 750 MG PREMIX 150 ML IV SCH ×2 (08:11→20:32)
[2021-01-30] MEDS: ZINC SULFATE 220 MG ( 50 ) CAPSULE PO SCH (08:11)
[2021-01-30] MEDS: FAMOTIDINE 20MG TABLET PO SCH ×2 (08:11→20:31)
[2021-01-30] MEDS: CHOLECALCIFEROL (D3) 1000 UNIT TABLET PO SCH (08:11)
[2021-01-30] MEDS ORDERED: IPRATROPIUM/ALBUTEROL 0.5-3(2.5)MG/3ML NEB HHN PRN (10:30)
[2021-01-30] MEDS: NOREPINEPHRINE 8 MG in DEXT 5% WATER 242 ML IV PRN (20:13)
[2021-01-31] VITALS (97 sets, daily range): BP systolic 75–110; BP diastolic 44–69
[2021-01-31] MEDS: ASCORBIC ACID 500 MG TABLET PO SCH ×2 (08:24→20:43)
[2021-01-31] MEDS: FAMOTIDINE 20MG TABLET PO SCH ×2 (08:24→20:43)
[2021-01-31] MEDS: NICOTINE 7MG PATCH TD SCH (08:24)
[2021-01-31] MEDS: MIDODRINE HCL 5MG TABLET PO SCH ×3 (08:24→17:16)
[2021-01-31] MEDS: CHOLECALCIFEROL (D3) 1000 UNIT TABLET PO SCH (08:24)
[2021-01-31] MEDS: ZINC SULFATE 220 MG ( 50 ) CAPSULE PO SCH (08:24)
[2021-01-31] MEDS ORDERED: ALBUMIN HUMAN 25GM/500ML (5%) IV NR (10:00)
[2021-01-31 10:15] LABS: CHLORIDE 105 mEq/L (98-107); HEMATOCRIT. 25.6 % (42.0-52.0); HEMOGLOBIN. 8.7 g/dL (14.0-18.0); MEAN CORPUSCULAR HEMOGLOBIN 31.3 pg (28.0-32.0); MEAN CORPUSCULAR VOLUME 92.4 fL (80.0-94.0); MEAN PLATELET VOLUME 10.9 fl (7.4-10.4); RED BLOOD CELL COUNT 2.77 mill/uL (4.7-6.1); RED CELL DISTRIBUTION WIDTH 14.6 % (11.6-14.6)
[2021-01-31 14:00] LABS: PLATELET 24 x1000/uL (130-400); PLATELET ESTIMATE MARKEDLY DECREASED
[2021-02-01] VITALS (94 sets, daily range): BP systolic 75–130; BP diastolic 16–81
[2021-02-01] MEDS: PHENYLEPHRINE 50 MG in DEXT 5% WATER 245 ML IV PRN ×2 (02:14→16:48)
[2021-02-01 07:12] LABS: HEMATOCRIT. 27.5 % (42.0-52.0); HEMOGLOBIN. 8.9 g/dL (14.0-18.0); MEAN CORPUSCULAR HEMOGLOBIN 30.4 pg (28.0-32.0); MEAN CORPUSCULAR VOLUME 93.8 fL (80.0-94.0); MEAN PLATELET VOLUME 11.5 fl (7.4-10.4); RED BLOOD CELL COUNT 2.93 mill/uL (4.7-6.1); RED CELL DISTRIBUTION WIDTH 14.6 % (11.6-14.6)
[2021-02-01 07:18] LABS: PLATELET 48 x1000/uL (130-400)
[2021-02-01 07:19] LABS: CHLORIDE 106 mEq/L (98-107)
[2021-02-01] MEDS: ZINC SULFATE 220 MG ( 50 ) CAPSULE PO SCH (08:57)
[2021-02-01] MEDS: MIDODRINE HCL 5MG TABLET PO SCH ×3 (08:57→16:47)
[2021-02-01] MEDS: CHOLECALCIFEROL (D3) 1000 UNIT TABLET PO SCH (08:57)
[2021-02-01] MEDS: FAMOTIDINE 20MG TABLET PO SCH ×2 (08:58→21:33)
[2021-02-01] MEDS: NICOTINE 7MG PATCH TD SCH (08:59)
[2021-02-01] MEDS: ASCORBIC ACID 500 MG TABLET PO SCH ×2 (08:59→21:33)
[2021-02-01 10:26] LABS: PLATELET ESTIMATE MARKEDLY DECREASED
[2021-02-01] MEDS: SODIUM CHLORIDE 1000MG TABLET PO SCH ×2 (12:59→16:48)
[2021-02-02] VITALS (93 sets, daily range): BP systolic 65–143; BP diastolic 39–81
[2021-02-02] MEDS: PHENYLEPHRINE 50 MG in DEXT 5% WATER 245 ML IV PRN ×2 (05:07→20:30)
[2021-02-02] MEDS: MIDODRINE HCL 5MG TABLET PO SCH ×3 (09:18→17:01)
[2021-02-02] MEDS: ZINC SULFATE 220 MG ( 50 ) CAPSULE PO SCH (09:18)
[2021-02-02] MEDS: CHOLECALCIFEROL (D3) 1000 UNIT TABLET PO SCH (09:19)
[2021-02-02] MEDS: ASCORBIC ACID 500 MG TABLET PO SCH ×2 (09:19→20:30)
[2021-02-02] MEDS: NICOTINE 7MG PATCH TD SCH (09:19)
[2021-02-02] MEDS: SODIUM CHLORIDE 1000MG TABLET PO SCH ×3 (09:21→17:01)
[2021-02-02] MEDS: FAMOTIDINE 20MG TABLET PO SCH ×2 (09:21→20:31)
[2021-02-02] MEDS: IPRATROPIUM/ALBUTEROL 0.5-3(2.5)MG/3ML NEB HHN SCH ×2 (13:42→20:17)
[2021-02-02] MEDS: ACETYLCYSTEINE 100MG/ML 10% VIAL 4ML INH SCH (20:17)
[2021-02-02] MEDS: ACETAMINOPHEN 650MG/20.3ML UDC PO PRN (20:30)
[2021-02-03] VITALS (95 sets, daily range): BP systolic 83–157; BP diastolic 38–92
[2021-02-03] MEDS: IPRATROPIUM/ALBUTEROL 0.5-3(2.5)MG/3ML NEB HHN SCH ×4 (02:00→20:17)
[2021-02-03] MEDS: ACETAMINOPHEN 650MG/20.3ML UDC PO PRN (04:04)
[2021-02-03 05:00] LABS: HEMATOCRIT. 27.2 % (42.0-52.0); HEMOGLOBIN. 9.1 g/dL (14.0-18.0); MEAN CORPUSCULAR HEMOGLOBIN 30.5 pg (28.0-32.0); MEAN CORPUSCULAR VOLUME 91.1 fL (80.0-94.0); PLATELET 169 x1000/uL (130-400); RED BLOOD CELL COUNT 2.98 mill/uL (4.7-6.1); RED CELL DISTRIBUTION WIDTH 15.3 % (11.6-14.6)
[2021-02-03 05:05] LABS: CHLORIDE 99 mEq/L (98-107)
[2021-02-03] MEDS: PHENYLEPHRINE 50 MG in DEXT 5% WATER 245 ML IV PRN ×2 (06:17→15:19)
[2021-02-03] MEDS: MIDODRINE HCL 5MG TABLET PO SCH ×3 (08:29→17:09)
[2021-02-03] MEDS: FAMOTIDINE 20MG TABLET PO SCH ×2 (08:29→21:32)
[2021-02-03] MEDS: ASCORBIC ACID 500 MG TABLET PO SCH ×2 (08:29→21:32)
[2021-02-03] MEDS: CHOLECALCIFEROL (D3) 1000 UNIT TABLET PO SCH (08:29)
[2021-02-03] MEDS: ZINC SULFATE 220 MG ( 50 ) CAPSULE PO SCH (08:29)
[2021-02-03] MEDS: NICOTINE 7MG PATCH TD SCH (08:29)
[2021-02-03] MEDS: SODIUM CHLORIDE 1000MG TABLET PO SCH ×3 (08:29→17:07)
[2021-02-03] MEDS: ACETYLCYSTEINE 100MG/ML 10% VIAL 4ML INH SCH ×3 (08:37→20:17)
[2021-02-03 14:28] LABS: PLATELET ESTIMATE NORMAL
[2021-02-04] VITALS (98 sets, daily range): BP systolic 69–155; BP diastolic 43–114
[2021-02-04] MEDS: IPRATROPIUM/ALBUTEROL 0.5-3(2.5)MG/3ML NEB HHN SCH ×4 (02:25→20:26)
[2021-02-04] MEDS: PHENYLEPHRINE 50 MG in DEXT 5% WATER 245 ML IV PRN ×3 (03:36→15:01)
[2021-02-04 05:51] LABS: HEMATOCRIT. 30.5 % (42.0-52.0); HEMOGLOBIN. 9.9 g/dL (14.0-18.0); MEAN CORPUSCULAR HEMOGLOBIN 29.8 pg (28.0-32.0); MEAN CORPUSCULAR VOLUME 91.4 fL (80.0-94.0); MEAN PLATELET VOLUME 9.4 fl (7.4-10.4); PLATELET 243 x1000/uL (130-400); RED BLOOD CELL COUNT 3.34 mill/uL (4.7-6.1); RED CELL DISTRIBUTION WIDTH 15.4 % (11.6-14.6)
[2021-02-04 05:57] LABS: CHLORIDE 94 mEq/L (98-107)
[2021-02-04] MEDS: ACETYLCYSTEINE 100MG/ML 10% VIAL 4ML INH SCH ×2 (08:23→20:26)
[2021-02-04] MEDS ORDERED: VASOPRESSIN 20 UNIT in SODIUM CHLORIDE 0.9% 99 ML IV PRN (09:15)
[2021-02-04] MEDS: SODIUM CHLORIDE 1000MG TABLET PO SCH ×3 (10:00→16:31)
[2021-02-04] MEDS: FAMOTIDINE 20MG TABLET PO SCH ×2 (10:00→20:39)
[2021-02-04 10:16] LABS: PLATELET ESTIMATE NORMAL
[2021-02-04] MEDS: CHOLECALCIFEROL (D3) 1000 UNIT TABLET PO SCH (10:24)
[2021-02-04] MEDS: ZINC SULFATE 220 MG ( 50 ) CAPSULE PO SCH (10:24)
[2021-02-04] MEDS: MIDODRINE HCL 5MG TABLET PO SCH ×3 (10:24→16:31)
[2021-02-04] MEDS: ASCORBIC ACID 500 MG TABLET PO SCH ×2 (10:24→20:38)
[2021-02-04] MEDS ORDERED: ALBUMIN HUMAN 25GM/500ML (5%) IV NR (11:00)
[2021-02-04] MEDS: NICOTINE 7MG PATCH TD SCH (13:04)
[2021-02-04] MEDS ORDERED: ENOXAPARIN 40MG/0.4ML SYR SUBCUT SCH (15:00)
[2021-02-04] MEDS: PHENYLEPHRINE 100 MG in DEXT 5% WATER 240 ML IV PRN (22:30)
[2021-02-05] VITALS (61 sets, daily range): BP systolic 61–146; BP diastolic 28–86
[2021-02-05] MEDS: IPRATROPIUM/ALBUTEROL 0.5-3(2.5)MG/3ML NEB HHN SCH ×2 (01:55→08:30)
[2021-02-05] MEDS: PHENYLEPHRINE 100 MG in DEXT 5% WATER 240 ML IV PRN (07:27)
[2021-02-05] MEDS: ACETYLCYSTEINE 100MG/ML 10% VIAL 4ML INH SCH (08:30)
[2021-02-05] MEDS: FAMOTIDINE 20MG TABLET PO SCH (09:19)
[2021-02-05] MEDS: ASCORBIC ACID 500 MG TABLET PO SCH (09:19)
[2021-02-05] MEDS: NICOTINE 7MG PATCH TD SCH (09:19)
[2021-02-05] MEDS: ZINC SULFATE 220 MG ( 50 ) CAPSULE PO SCH (09:19)
[2021-02-05] MEDS: MIDODRINE HCL 5MG TABLET PO SCH (09:20)
[2021-02-05] MEDS: SODIUM CHLORIDE 1000MG TABLET PO SCH (09:20)
[2021-02-05] MEDS: CHOLECALCIFEROL (D3) 1000 UNIT TABLET PO SCH (09:20)
[2021-02-05] MEDS ORDERED: CEFTRIAXONE 1 G PREMIX 50 ML IV SCH (09:30)
[2021-02-05] MEDS ORDERED: CEFTRIAXONE 1,000 MG in DEXTROSE 5% WATER 50 ML IV SCH (11:30)
== END 2021-02-05 13:35 | DRG 720 ==
LOC: ER 07:52 → MICUSO 13:31 → EDBEDREQ 13:36 → EDBEDREQSVC 13:36 → EDBEDREQTM 13:36 → ENRESERV 20:38 → MICUNO 01-27 20:00
PROVIDERS: ADMIT Internal Medicine; ATTEND Internal Medicine
PROC: 05H533Z Insertion of Infusion Device into Right Subclavian Vein, Percutaneous Approach (ICD-10-PCS; principal; 2021-01-25)
PROC: B546ZZA Ultrasonography of Right Subclavian Vein, Guidance (ICD-10-PCS; 2021-01-25)
DX: A41.9 Sepsis, unspecified organism (principal); J96.00 Acute respiratory failure, unspecified whether with hypoxia or hypercapnia; R65.21 Severe sepsis with septic shock; E43 Unspecified severe protein-calorie malnutrition; G92 Toxic encephalopathy; D69.6 Thrombocytopenia, unspecified; J18.9 Pneumonia, unspecified organism; E83.51 Hypocalcemia; K74.60 Unspecified cirrhosis of liver; N39.0 Urinary tract infection, site not specified; D63.8 Anemia in other chronic diseases classified elsewhere; B96.20 Unspecified Escherichia coli [E. coli] as the cause of diseases classified elsewhere; R13.10 Dysphagia, unspecified; R62.7 Adult failure to thrive; Z20.822 Contact with and (suspected) exposure to COVID-19; S51.812A Laceration without foreign body of left forearm, initial encounter; X58.XXXA Exposure to other specified factors, initial encounter; K80.20 Calculus of gallbladder without cholecystitis without obstruction; Z66 Do not resuscitate; Z68.1 Body mass index [BMI] 19.9 or less, adult; Y93.89 Activity, other specified; Y92.89 Other specified places as the place of occurrence of the external cause; Y99.8 Other external cause status
CPT/HCPCS: 36415; 36600; 70551; 71045; 74176; 76937; 80048; 80053; 80061; 80202; 81003; 82040; 82140; 82375; 82550; 82553; 82607; 82746; 82805; 83036; 83540; 83550; 83605; 83735; 83880; 84100; 84134; 84145; 84439; 84443; 84484; 85025; 87077; 87186; 92610; 93005; 93306; 93923; 93970; 94640; 99291; A6261; C1725; J0696; J1265; J1650; J2370; J2405; J2543; J3370; J3490; J7030; J7040; J7060; J7608; P9041; U0003; A4315